=== PATIENT | male | born 1940 | race Caucasian/White ===

== ENCOUNTER → 2023-06-28 07:13 | Outpatient (REF) | payer MEDICARE, OTHER, SELFPAY | LOC: DHCBC HW 07:13 | PROVIDERS: ATTENDING PHYSICIAN Internal Medicine Cardiovascular Disease; FAMILY PHYSICIAN Family Medicine | DX: I25.10 Atherosclerotic heart disease of native coronary artery without angina pectoris (principal); I25.5 Ischemic cardiomyopathy | CPT/HCPCS: 93306 ==

== ENCOUNTER → 2023-08-03 07:53 | Outpatient (REF) | payer MEDICARE, OTHER, SELFPAY | LOC: RAD 07:53 | PROVIDERS: ATTENDING PHYSICIAN Internal Medicine; FAMILY PHYSICIAN Family Medicine | DX: N18.32 Chronic kidney disease, stage 3b (principal); I10 Essential (primary) hypertension | CPT/HCPCS: 93975 ==

== ENCOUNTER 2023-09-08 07:00 | Inpatient (IN) | payer MEDICARE, OTHER, SELFPAY ==
[2023-09-07] VITALS (8 sets, daily range): BP systolic 114–153; BP diastolic 75–98; BMI 24.9; BMI 24.6
[2023-09-07 20:09] LABS: % Basophils 0.5 % (0-2); % Immature Granulocytes 0.3 % (0-0.5); % Lymphocytes 13.8 % (20.5-51.1); % Monocytes 10.6 % (1.7-9.3); % Neutrophils 66.8 % (42.2-75.2); Absolute Eosinophils 0.6 10^3/uL (0-0.7); Absolute Lymphocytes 1.1 10^3/uL (1.2-3.4); Absolute Monocytes 0.8 10^3/uL (0.1-0.6); Absolute Neutrophils 5.1 10^3/uL (1.4-6.5); Hematocrit 39.3 % (39.0-52.0); Hemoglobin 13.6 g/dL (13.0-18.0); Mean Corp Hgb Conc. 34.6 g/dL (33.0-37.0); Mean Corpuscular Hgb 33.3 pg (27.0-31.0); Mean Corpuscular Volume 96.1 fL (80.0-94.0); Mean Platelet Volume 10.1 fL (7.4-10.4); Nucleated Red Blood Cells % 0 % (-); Platelet Count 202 10^3/uL (130-400); Red Blood Cell Count 4.09 10^6/uL (4.70-6.10); Red Cell Dist. Width 13.5 % (11.5-14.5); White Blood Cell Count 7.7 10^3/uL (4.8-10.8)
[2023-09-07 20:41] LABS: ALT (SGPT) 20 U/L (0-50); AST (SGOT) 36 U/L (17-59); Albumin 4.7 g/dl (3.5-5.0); Alkaline Phosphatase 68 U/L (38-126); Blood Urea Nitrogen 31 mg/dl (9-20); Calcium 9.4 mg/dl (8.4-10.2); Carbon Dioxide 24 mmol/L (22-30); Chloride 103 mmol/L (98-107); Glucose 231 mg/dl (70-99); Potassium 5.4 mmol/L (3.5-5.1); Sodium 137 mmol/L (135-145); Total Bilirubin 0.5 mg/dl (0.2-1.3); Total Protein 7.3 g/dl (6.3-8.2); eGFR 37.12
--- NOTE | 2023-09-07 21:11 | ED.CVA ---
History of Present Illness
General
Chief Complaint: CVA/TIA Symptoms
Source: patient
Exam Limitations: none
Time Seen by Provider: 09/07/23 20:30
Nursing documentation reviewed up to this point in time: agreed with
Onset of Stroke Symptoms
Onset of symptoms known: Yes
Date of onset of symptoms: 09/05/23
History of Present Illness
History of Present Illness:
83 yo male with difficulty word finding and confusion for the past 2 days. He was having trouble playing cards, and confused about baseball schedules.
Past History
Past History
ED Past Medical History: Arrthythmia (HB, R BBB), CAD, Cancer (renal, Colon / liver mets), CVA, GERD, NIDDM and Other (cardiomyopathy, CKD)
ED Past Surgical History: Cardiac
Patient has exhibited threatening behavior?: No
PSI?: No
Social History
Tobacco: Non-smoker
Alcohol: Occasional
Drug: None
Personal:
Living: with family
Employment: Retired
Family History
Family History: Other (Nonsignificant)
Review of Systems
Review of Systems
Allergies reviewed?: Yes
All Other Systems: Not applicable
Constitutional: Reports no symptoms
EENT: Reports no symptoms
Respiratory: Reports no symptoms
Cardiac: Reports no symptoms
ABD/GI: Reports no symptoms
: Reports no symptoms
Musculoskeletal: Reports no symptoms
Skin: Reports no symptoms
Neurological: Reports other (Confusion, word finding difficulty)
Endocrine: Reports no symptoms
Hematologic/Lymphatic: Reports no symptoms
Psychiatric: Reports no symptoms
Phy Exam
Physical Exam
Physical Exam:
Physical Exam
General: no apparent distress, not acutely ill
Neck: supple. no meningeal signs. normal posterior pharynx
Heart: s1/s2 regular rate and rhythm, no murmur. equal radial
pulses.
HEENT: Pupils equal round reactive to light, EOMI
Lungs: no acute respiratory distress. clear bilaterally
Abdomen: normal bowel sounds. not tender. no CVAT
Neuro: alert and oriented. no focal neurological deficits cranial nerves II through XII intact
Skin: no rash
Psychiatric: well kept. interactive and cooperative
Extremities: no edema. no calf tenderness. negative homans. good distal pulses
NIH Stroke Score
Level of Consciousness: 0 - Alert
LOC questions: 0-Answers both correctly
LOC Commands: 0-Performs both correctly
Best Gaze: 0-Normal
Visual Rockwell: 0=Normal, no visual loss
Facial palsy: 0=Normal, symmetrical
Motor - Right Arm: 0=No drift 10 seconds
Motor - Left Arm: 0=No drift 10 seconds
Motor - Right Le-No drift 5 seconds
Motor - Left Le-No drift 5 seconds
Limb Ataxia: 0-Absent
Sensation: 0-Normal
Best Language: 0-No aphasia
Dysarthria: 0-Normal
Extinction and Inattention: 0-No abnormality
Total Score:: 0
Alteplase Contraindication
Reasons for NON-Treatment with Thrombolytics: Time
Course
Orders/Labs/Results
Orders:
Orders
09/07/23 19:58
Electrocardiogram (*1) Urgent
Reason for Study: Other
Other Reason for Exam: Possible Stroke
EKG- Treatment ONCE
09/07/23 20:02
CT Head W/o Iv Contrast Urgent
Comment:
Reason For Exam: word finding issues
09/07/23 20:05
Complete Blood Count/With Diff Urgent
Comprehensive Metabolic Panel Urgent
Abnormal Lab Results
09/07/23
20:05
RBC 4.09 L 10^6/uL
(4.70-6.10)
MCV 96.1 H fL
(80.0-94.0)
MCH 33.3 H pg
(27.0-31.0)
Absolute Lymphs (auto) 1.1 L 10^3/uL
(1.2-3.4)
Absolute Monos (auto) 0.8 H 10^3/uL
(0.1-0.6)
Lymphocytes % 13.8 L %
(20.5-51.1)
Monocytes % 10.6 H %
(1.7-9.3)
Eosinophils % 8.0 H %
(0-6)
Potassium 5.4 H mmol/L
(3.5-5.1)
BUN 31 H mg/dl
(9-20)
Creatinine 1.8 H mg/dL
(0.7-1.3)
Glucose 231 H mg/dl
(70-99)
09/07/23 20:05
09/07/23 20:05
Vital Signs
Initial and Last Documented VS:
Initial Vital Signs
Temp Pulse Resp BP Pulse Ox
98.3 F 81 16 137/85 98
09/07/23 19:55 09/07/23 19:55 09/07/23 19:55 09/07/23 19:55 09/07/23 19:55
Last Documented Vital Signs
Temp Pulse Resp BP Pulse Ox
98.3 F 81 16 137/85 98
09/07/23 19:55 09/07/23 19:55 09/07/23 19:55 09/07/23 19:55 09/07/23 19:55
MDM/Problems Addressed
Differential Diagnosis Includes:
CVA, intracranial hemorrhage, dysrhythmia
MDM/Problems Addressed:
83-year-old male with acute CVA. IAT and TNK not indicated. Patient on Eliquis.
Chronic conditions affecting care: Cardiomyopathy, Arrhythmia and PVD
Acute Exacerbation and/or Progression of Chronic Illness: Cardiomyopathy, Arrhythmia and PVD
*Radiology
Radiology exam reviewed: radiology read reviewed (CT head shows subacute to acute right parietal infarct)
*Pulse Oximetry
Patient hypoxic: no
*EKG
Interpreted by ED Provider?: Yes
EKG Intrepretation Date: 09/07/23
EKG Intrepretation Time: 20:08
Interpretation: abnormal
Comparison EKG: changes noted
Heart Rate: 134
Rate: tachycardiac
Rhythm: ventricular paced
[facility] [place]: left axis deviation
Interval: normal interval
QRS Pattern: normal QRS
Ischemia: no ischemia
*Quality Control Representative Interpretation
Rate: tachycardiac
Interpretation: abnormal
Rhythm: ventricular paced
*Critical Care Note
Total Time (30-74mins, 75-104mins- exclusive of procedures): Not Applicable
Data Reviewed
Review of Other/Old Records Reveals: Testing (Echocardiogram on 06/28/2023 shows EF 25 to 30%)
Source: records
Further Testing Considered But Not Given:
tnk not indicated
Patient Management
Social determinants of health affecting care: Living situation and Strong social support
Discussion with other providers: Hospitalist and Attending Psychiatrist (neurology)
Escalation/DeEscalation of care consider admission/obs:
admit indicated
ED Attending Note
-
Portions of this chart may have been created with voice recognition software.� Occasional wrong word or��sound alike� substitutions may have occurred due to the inherent limitations of voice recognition software.
Discharge Plan
Departure
Patient Disposition: Admit
Date of Disposition: 09/07/23
Time of Disposition: 21:16
Admit to: Telemetry
Presentation/result/management discussed w/ accepting MD/DO: Hospitalist
Patient with high blood pressure during this ER visit?: Yes
Condition: Good
Discharge Problem:
Acute cerebrovascular accident (CVA)
Prescriptions:
No Action
Tradjenta 5 MG tablet
5 mg PO DAILY
multivitamin with folic acid [Tab-A-Micheel] 1 TABLET tablet
1 tab PO DAILY
pantoprazole 40 MG tablet,delayed release (DR/EC)
40 mg PO DAILY
aspirin 81 MG tablet,delayed release (DR/EC)
81 mg PO QPM
ferrous sulfate [FeroSul] 325 MG tablet
325 mg PO [id number]
cholecalciferol (vitamin D3) 1,000 UNITS tablet
1,000 units PO DAILY
metoprolol succinate [Toprol XL] 25 mg Tablet Extended Release 24 Hr
25 mg PO BID
acetaminophen 325 mg Tablet
650 mg PO Q6HPRN PRN (Reason: mild pain/ fever>100.5F) Qty: 0 0RF
clopidogrel 75 mg Tablet
75 mg PO DAILY Qty: 30 0RF
repaglinide 0.5 mg Tablet
0.5 mg PO TID@0800,1200,1700 Qty: 90 0RF
rosuvastatin 20 mg Tablet
20 mg PO QPM Qty: 30 0RF
lisinopril 5 mg Tablet
5 mg PO DAILY Qty: 30 0RF
Referrals:
Jono Green DO [Family Provider] -
Interventions
Interventions:
*General Assessment Last Done: 09/07/23 19:55
ED- Neurological Assessment Last Done: 09/07/23 19:55
Discharge Date and Time
Print Language: BELARUSIAN
--- NOTE | 2023-09-07 21:48 | HPS.HSE ---
Family Physician
-
Family Physician: Jono Green
Chief Complaint
-
word finding difficulty
History of Present Illness
83-year-old male past medical history of prior CVA 2001, multivessel coronary artery disease, severe ischemic cardiomyopathy with EF of 30 to 35% status post ICD, ventricular fibrillation, paroxysmal atrial fibrillation, mild pulmonary hypertension,
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
confusion, word finding difficulty for the past 2 days. Today he had trouble remembering a phone number. Currently he denies any symptoms. He did have blurry vision yesterday which has resolved.
He denies smoking alcohol use.
Medical History
Past Medical History
Past Medical History: Reports Other (prior CVA 2001, multivessel coronary artery disease, severe ischemic cardiomyopathy with EF of 30 to 35% status post ICD, ventricular fibrillation, paroxysmal atrial fibrillation, mild pulmonary hypertension,
pulmonary embolism on Eliquis, CKD stage II, hypertension, diabetes, colon cancer, left eren)
Past Surgical History: Reports None
Social History
Tobacco: Non-smoker
Alcohol: None
Drug: None
Family History
Family History: Not pertinent
Allergies / Home Medications
Allergies reflects when Allergies were last updated in [facility].
Home Medications with original date entered in [facility]
Allergy/Medication List:
Allergies
Allergy/AdvReac Type Severity Reaction Status Date / Time
metformin Allergy Hives-xr Verified 10/18/21 16:35
only
red dye Allergy throat Verified 10/17/21 09:47
closed up
Sulfa (Sulfonamide Allergy throat Verified 10/17/21 09:47
Antibiotics) tightens up
Allergies
Allergy/AdvReac Type Severity Reaction Status Date / Time
metformin Allergy Hives-xr Verified 10/18/21 16:35
only
red dye Allergy throat Verified 10/17/21 09:47
closed up
Sulfa (Sulfonamide Allergy throat Verified 10/17/21 09:47
Antibiotics) tightens up
Home Medications
linagliptin 5 mg tablet (Tradjenta) 5 mg PO DAILY Diabetes 01/22/19
multivitamin with folic acid 400 mcg tablet (Tab-A-Michele) 1 tab PO DAILY Supplement 01/22/19
aspirin 81 mg tablet,delayed release 81 mg PO QPM Blood clot prevention/tx 11/05/19
ferrous sulfate 325 mg (65 mg iron) tablet (FeroSul) 325 mg PO Q48H Supplement 11/05/19
apixaban 2.5 mg tablet (Eliquis) 2.5 mg PO BID 09/07/23
ergocalciferol (vitamin D2) 1,250 mcg (50,000 unit) capsule (Vitamin D2) 1,250 mcg PO Q15D 09/07/23
insulin glargine 100 unit/mL (3 mL) subcutaneous pen (Lantus Solostar U-100 Insulin) 12 unit SC HS 09/07/23
metoprolol succinate 50 mg tablet,extended release 24 hr 50 mg PO BID 09/07/23
repaglinide 1 mg tablet 1 mg PO DAILY 09/07/23
repaglinide 1 mg tablet 2 mg PO NOON 09/07/23
repaglinide 2 mg tablet 8 mg PO QPM 09/07/23
rosuvastatin 20 mg tablet 10 mg PO QPM 09/07/23
Review of Systems
-
History Source: Patient
A 12 point ROS was completed and negative except as noted: Yes
Constitutional: Reports No Symptoms
EENT: Reports No Symptoms
Respiratory: Reports No Symptoms
Cardiac: Reports No Symptoms
Abdomen/GI: Reports No Symptoms
: Reports No Symptoms
Musculoskeletal: Reports No Symptoms
Skin: Reports No Symptoms
Neurological: Reports See HPI
Endocrine: Reports No Symptoms
Hematologic/Lymphatic: Reports No Symptoms
Psych: Reports No Symptoms
Physical Exam
Vital Signs
Vital Signs
Temp Pulse Resp BP Pulse Ox
98.3 F 81 16 137/85 98
09/07/23 19:55 09/07/23 19:55 09/07/23 19:55 09/07/23 19:55 09/07/23 19:55
Physical Exam
General: Well Developed, Well Nourished and No Apparent Distress
HEENT: NormoCephalic, Moist mucous membranes and Atraumatic
Respiratory: Clear
Cardiac: S1/S2 and Regular Rhythm; No Murmur or Rub
GI: Soft, Non Tender, Non Distended and Normal Bowel Sounds; No Organomegaly
Rectal: Deferred by Provider
Musculoskeletal: No Clubbing, No Cyanosis and No Edema
Skin: No Rash
Neuro: Nonfocal/grossly intact
Laboratory Results
-
09/07/23 20:05
09/07/23 20:05
Laboratory Results
Total Bilirubin 0.5 mg/dl (0.2-1.3) 09/07/23 20:05
AST 36 U/L (17-59) 09/07/23 20:05
ALT 20 U/L (0-50) 09/07/23 20:05
Alkaline Phosphatase 68 U/L (38-126) 09/07/23 20:05
Data Reviewed
-
Lab Data: Labs Reviewed by me
Old Records: Reviewed
Impression/Plan
-
IMPRESSION:
PLAN:
# Acute/subacute right parietal CVA
-Asymptomatic currently
-Hold Eliquis which was last taken at 7 PM today
-Continue aspirin
-Check MRI/MRA head and neck
-Check A1c and lipid panel
-Neurology consult
Multivessel coronary artery disease
-Continue statin
Severe ischemic cardiomyopathy with EF 30 to 35% status post ICD
-Continue metoprolol
History of ventricular fibrillation
Paroxysmal atrial fibrillation
Mild pulmonary hypertension
Hx of Pulmonary embolism (Unable to verify)
-Patient does not know any further details about this but states he had a clot
-Hold Eliquis
#CKD stage II
#Hyperkalemia
-Renal function at baseline
-Hold lisinopril
Essential hypertension
-Hold lisinopril due to hyperkalemia
Type 2 diabetes
-Continue Lantus 12 units
-Hold repaglinide
-Continue Tradjenta
-Insulin sliding scale
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
-Currently in remission, completed immunotherapy 3 weeks ago
Left renal cell carcinoma status post left nephrectomy
GERD
-Continue Protonix
Full code
DVT prophylaxis�SCDs
Cardiac diet
[2023-09-07 23:39] LABS: Glucose - Point of Care 170 mg/dl (70-99)
[2023-09-08] VITALS (8 sets, daily range): BP systolic 111–145; BP diastolic 69–99; PULSE 78–118; O2SAT 96–97; BMI 24.6
[2023-09-08] MEDS: LANTUS 0.119999999999999996 UNITS SC ×2 (00:09→22:17)
[2023-09-08 00:11] LABS: ALT (SGPT) 19 U/L (0-50); AST (SGOT) 37 U/L (17-59); Albumin 4.3 g/dl (3.5-5.0); Alkaline Phosphatase 60 U/L (38-126); Blood Urea Nitrogen 31 mg/dl (9-20); Calcium 8.9 mg/dl (8.4-10.2); Carbon Dioxide 23 mmol/L (22-30); Chloride 106 mmol/L (98-107); Estimated Creatinine Clearance 38 ml/min; Glucose 155 mg/dl (70-99); Potassium 4.5 mmol/L (3.5-5.1); Sodium 136 mmol/L (135-145); Total Bilirubin 0.6 mg/dl (0.2-1.3); Total Protein 6.7 g/dl (6.3-8.2); eGFR 42.75
--- NOTE | 2023-09-08 01:49 | PTCARENOTE ---
Received pt from ED @ 7280. Pt ambulatory in room, AAOx3, VSS. Pt oriented to room, call olson and plan of care.
[2023-09-08 05:22] LABS: Hematocrit 36.3 % (39.0-52.0); Hemoglobin 12.4 g/dL (13.0-18.0); Mean Corp Hgb Conc. 34.2 g/dL (33.0-37.0); Mean Corpuscular Hgb 32.5 pg (27.0-31.0); Mean Corpuscular Volume 95.3 fL (80.0-94.0); Mean Platelet Volume 10.2 fL (7.4-10.4); Platelet Count 184 10^3/uL (130-400); Red Blood Cell Count 3.81 10^6/uL (4.70-6.10); Red Cell Dist. Width 13.4 % (11.5-14.5); White Blood Cell Count 6.2 10^3/uL (4.8-10.8)
[2023-09-08 05:52] LABS: HDL Cholesterol 38 mg/dl; LDL Cholesterol, Calculated 44 mg/dl; Total Cholesterol 98 mg/dl (50-199); Triglyceride 83 mg/dl (10-149); Very Low Density Lipoprotein 16 mg/dl (0-30)
[2023-09-08 07:55] LABS: Glucose - Point of Care 134 mg/dl (70-99)
[2023-09-08] MEDS: NOVOLOG FLEXPEN-LOW RESISTANCE SC (08:38)
[2023-09-08] MEDS: TOPROL XL 50 MG PO ×2 (08:39→20:24)
[2023-09-08] MEDS: FEOSOL 325 MG PO (08:39)
[2023-09-08] MEDS: THERAGRAN 1 TABLET PO (08:39)
--- NOTE | 2023-09-08 08:55 | PTOTSP ---
Speech Language Pathology
Pt seen for speech/language evaluations. Pt with mild dysarthria with slow and incoordinated diadochokinetic (DDK) rates. Language evaluated via the Quick Aphasia Battery (QAB), form 1. Pt with an overall score of 7.18, indicating overall
moderate deficits.
Pt also seen for clinical bedside swallow evaluation. P.O. trials of regular solids and thin liquids provided. Adequate mastication, bolus formation, and A-P transit noted with no oral residue. No overt signs of aspiration.
Recommend:
(1) Continue regular solids/thin liquids
(2) General aspiration precautions
(3) Meds as tolerated
(4) VOLUNTEER SERVICES MANAGER to continue to follow for speech/language therapy. Further dysphagia services not indicated. Would benefit from speech follow up at discharge as well
--- NOTE | 2023-09-08 09:10 | W.PN.HOSP.TC ---
Addendum entered and electronically signed by Susan Burris MD 09/08/23 10:59:
Addendum
d/w Dr Hidalgo, neurologist. No need for MRI studies. Ok to go back on Eliquis. Can go home.
Addendum
Will do carotid US
End
Original Note:
Today's Communication/Plan
-
Holding Eliquis pending neurology evaluation
Echo
MRI studies
f/w neurology recommendations
Assessment / Plan
Assessment / Plan
Physical Exam
General: Well Developed, Well Nourished and No Apparent Distress
HEENT: Normocephalic, Moist mucous membranes and Atraumatic
Respiratory: Clear. Right upper chest port
Cardiac: S1/S2 and Regular Rhythm; No Murmur or Rub
GI: Soft, Non Tender, Non Distended and Normal Bowel Sounds; No Organomegaly
Musculoskeletal: No Clubbing, No Cyanosis and No Edema
Skin: No Rash
Neuro: AAOX3. No slurred speech. No tremor.
Psych: No agitation
# Acute/subacute right parietal CVA
Patient takes aspirin and Eliquis regularly.
-Asymptomatic currently
-Holding Eliquis pending neurology evaluation
-Continue aspirin
-Check MRI/MRA head and neck
- Order Echo
-LDL 44
- Order PT/OT/Speech
- NIH score
-Neurology consult
# Stage 3b chronic kidney disease
Solitary kidney
Monitor renal function
# Hyperkalemia, resolved
Multivessel coronary artery disease
No chest pain
-Continue statin
# Chronic HFrEF
Severe ischemic cardiomyopathy with EF 30 to 35% status post ICD
-Continue metoprolol
Not in acute failure
History of ventricular fibrillation
Paroxysmal atrial fibrillation
Holding Eliquis pending neurology evaluation
Mild pulmonary hypertension
Hx of Pulmonary embolism (Unable to verify)
-Patient does not know any further details about this but states he had a clot
-Hold Eliquis
#CKD stage II
#Hyperkalemia
-Renal function at baseline
-Hold lisinopril
Essential hypertension
c/w BB
-Held lisinopril due to hyperkalemia
Type 2 diabetes
-Continue Lantus 12 units
-Hold repaglinide
-Continue Tradjenta
-Insulin sliding scale
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
Port right upper chest
-Currently in remission, completed immunotherapy 3 weeks ago
Left renal cell carcinoma status post left nephrectomy
GERD
-Continue Protonix
Full code
DVT prophylaxis�SCDs
Cardiac diet
Total time spent to see the patient on the floor, examine the patient, review data and lab results, discuss treatment plan with patient, nursing staff around 55 minutes
Anticipated Discharge: 24 - 48 hours
Subjective/Interval History
-
Date of Service: September 08, 2023
He feels back to chloe, able to talk and think
no localized weakness
No chest pain
Objective Data
-
Labs:
Laboratory Results
09/07/23 09/08/23
23:46 05:05
WBC 6.2
Hgb 12.4 L
Hct 36.3 L
Plt Count 184
Sodium 136
Potassium 4.5
Chloride 106
Carbon Dioxide 23
BUN 31 H
Creatinine 1.6 H
Glucose 155 H
Calcium 8.9
Total Bilirubin 0.6
AST 37
ALT 19
Alkaline Phosphatase 60
Vital Signs:
Vital Signs
Temp Pulse Resp BP Pulse Ox
97.8 F 80 18 129/74 98
09/08/23 07:40 09/08/23 08:39 09/08/23 07:40 09/08/23 08:39 09/08/23 07:40
[2023-09-08 10:18] LABS: Glycohemoglobin (HgbA1c) 7.5 % (4.0-5.6)
[2023-09-08 11:53] LABS: Glucose - Point of Care 272 mg/dl (70-99)
[2023-09-08] MEDS: NOVOLOG FLEXPEN-LOW RESISTANCE 3 UNITS SC (12:48)
--- NOTE | 2023-09-08 14:21 | CM ---
catering convention services manager reviewed patient's chart and met with patient and patient lives with spouse in a 2 story home, 2 steps to enter, patient was independent with adl's and ambulation, very active, spouse uses stair glide, walker, cane.
Pharmacy; [facility]
PCP: Dr. Green
Plan; Home when stable.
--- NOTE | 2023-09-08 14:50 | CON.NEURO4 ---
Consultation - Neurology 4
-
CONSULTING PHYSICIAN: Pb Hidalgo MD
REFERRING PHYSICIAN: Hospitalist
DICTATED BY: Pb Hidalgo MD
DATE/TIME OF REQUEST: September 07, 1823
DATE/TIME OF CONSULTATION: September 08, 2023 1030
Reason for Consultation: Speech impediment for 48 hours
History of Present Illness:
This is a 83year old right handed male who has presented to the hospital with chief complaint of speech impediment. He has a history of prior CVA 2001, multivessel coronary artery disease, severe ischemic cardiomyopathy with EF of 30 to 35% status
post ICD, ventricular fibrillation, paroxysmal atrial fibrillation, mild pulmonary hypertension, pulmonary embolism on Eliquis, CKD stage II, hypertension, diabetes, colon cancer, left renal cell carcinoma status post left nephrectomy, colon cancer
with metastases to liver recently completed immunotherapy 3 weeks ago, GERD.
He had been in his usual state of health presenting with confusion, word finding difficulty for the past 2 days. On the day of admission he had trouble remembering a phone number. Currently he denies any symptoms. He did have blurry vision
yesterday which has resolved
He denies headaches dizziness no focal weakness or numbness no loss conscious no seizures no difficulty with balance incoordination or gait impairment
Past Medical History: As above
Surgical History: Defibrillator placement nephrectomy
Family History: Noncontributory
Social History: Lives at home
Allergies: Metformin and sulfa
Home Medications: Eliquis 2.5 BID aspirin vitamin D insulin Crestor Tradjenta Prandin
Review of Symptoms:
Patient denies any fever, headache, chest pain, shortness of breath, GI or symptoms.
�Per the HPI.�All systems are reviewed negative except above.
�- Remove any of these problems that patient may have complained about in the HPI.
�- If patient is unresponsive, intubated or demented, say 'Per the HPI. I am unable to obtain a complete review of systems�because of patient's inability to provide history.'
Vital Signs: Temp Pulse Resp BP Pulse Ox
36.6 C 82 18 119/77 95
Physical Exam:
The patient is afebrile, heart sounds S1 and S2 are irregular, and chest is clear to auscultation bilaterally.
- If not clear, describe.
NIH Stroke Scale (if applicable): 0
Neurologic Examination:
The patient is awake, alert and oriented x person place and year. He is able to follow commands and answer questions appropriately. There is no aphasia or dysarthria. On cranial nerve assessment, pupils are 3 mm bilateral, round and reactive to
light and accommodation. Visual soriano are full. Extraocular movements are intact. Facial sensations are intact and bilaterally symmetrical, there is no facial asymmetry. Hearing is intact bilaterally to normal conversation volume. Tongue palate
and uvula are midline. Sternocleidomastoid strengths are full bilaterally.
Motor strengths are 5/5 bilateral upper and lower extremities on medical research [place] scale. There is no drift or involuntary movement noted.
Deep tendon reflexes are + bilateral upper and lower extremities and Babinski is absent bilaterally. Sensations of pain, touch, temperature and vibration are decreased bilaterally. Coordination is intact by finger to nose bilaterally.
Romberg's was unsteady and gait was assisted
Lab Results: 09/08/23 05:05
09/07/23 23:46
Sodium 136 mmol/L (135-145) 09/07/23 23:46
Potassium 4.5 mmol/L (3.5-5.1) 09/07/23 23:46
BUN 31 mg/dl (9-20) H 09/07/23 23:46
Glucose 155 mg/dl (70-99) H 09/07/23 23:46
Calcium 8.9 mg/dl (8.4-10.2) 09/07/23 23:46
LDL Cholesterol, Calc 44 mg/dl 09/08/23 05:05
Neuro Imaging: CT head FINDINGS:
The ventricles are normal in size, configuration, and position for age. There is no intra- or extra-axial mass, hemorrhage, or fluid collection.
3.0 cm focus of confluent hypoattenuation in the posterior right parietal lobe most in keeping with infarct, new from 01/22/2019. No areas of abnormal mass effect are noted. There is mild subcortical, deep, and periventricular white matter
low-attenuation, compatible with changes of chronic small vessel ischemic disease. Old right cerebellar infarct re demonstrated. Stable small focus of encephalomalacia in the right frontal lobe. Mild mucosal thickening of the right maxillary sinus.
No depressed calvarial fracture.
Impression:
Mr. KOKI CUNNINGHAM is a 83 year old M who has presented to the hospital with intermittent speech impediment most likely just presenting transient ischemic event of the Broca's area.
Recommendations:
1. Eliquis 2.5 twice daily
2. Aspirin 81 daily
3. Speech therapy
Patient may be discharged home once medically stable
Discussed patient care with: Hospitalist
Total Time Spent with Patient (in minutes): 30
Vital Signs and Labs
-
Vital Signs and Labs:
Vital Signs
Temp Pulse Resp BP Pulse Ox
36.6 C 82 18 119/77 95
09/08/23 11:00 09/08/23 11:00 09/08/23 11:00 09/08/23 11:00 09/08/23 11:00
Lab Results
09/08/23 05:05
09/07/23 23:46
Sodium 136 mmol/L (135-145) 09/07/23 23:46
Potassium 4.5 mmol/L (3.5-5.1) 09/07/23 23:46
BUN 31 mg/dl (9-20) H 09/07/23 23:46
Glucose 155 mg/dl (70-99) H 09/07/23 23:46
Calcium 8.9 mg/dl (8.4-10.2) 09/07/23 23:46
LDL Cholesterol, Calc 44 mg/dl 09/08/23 05:05
[2023-09-08 16:59] LABS: Glucose - Point of Care 172 mg/dl (70-99)
[2023-09-08] MEDS: CRESTOR 10 MG PO (17:24)
[2023-09-08] MEDS: ASPIR LOW (ENTERIC COATED) 81 MG PO (17:24)
[2023-09-08] MEDS: NOVOLOG FLEXPEN-LOW RESISTANCE 1 UNITS SC (17:25)
[2023-09-08] MEDS: ELIQUIS 2.5 MG PO (20:24)
[2023-09-08] MEDS: FLUSH (NSS) 1 FLUSH IV (20:38)
[2023-09-08 21:22] LABS: Glucose - Point of Care 255 mg/dl (70-99)
[2023-09-09 02:59] VITALS: BP 138/90
[2023-09-09 06:00] VITALS: BMI 24.0
[2023-09-09 07:03] VITALS: BP 122/76
[2023-09-09 07:15] LABS: Glucose - Point of Care 178 mg/dl (70-99)
[2023-09-09] MEDS: NOVOLOG FLEXPEN-LOW RESISTANCE 1 UNITS SC (07:21)
[2023-09-09] MEDS: THERAGRAN 1 TABLET PO (07:21)
[2023-09-09] MEDS: ELIQUIS 2.5 MG PO (07:21)
[2023-09-09] MEDS: TOPROL XL 50 MG PO (07:21)
--- NOTE | 2023-09-09 09:09 | W.DCSUMMARY ---
Discharge Summary
Discharge Data
Date of Admission: 09/08/23
Date of Discharge: 09/09/23
-
Pending Results: No
Hospital Course
83 years old male presented with word finding difficulty. 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 Patient had history of atrial fibrillation and was compliant with Eliquis and aspirin. Patient was
evaluated by neurologist. Neurologist recommended to continue Eliquis and aspirin without interruption. No need for by the resident imaging studies. Patient recovered well. He continued to have in the frequent word finding problem but overall
improved. Gait was normal and at baseline. No focal weakness. Mentation was at baseline and he remained lucid. Carotid ultrasound showed no significant stenosis in either side. Echocardiogram showed left ventricular ejection fraction 25 to 30%
and progression of tricuspid regurgitation from mild to moderate to moderate to severe. Patient wanted to follow-up with music therapy specialist in the office. Patient remained hemodynamic stable and was discharged home in a stable condition.
Physical Exam
General: Well Developed, Well Nourished and No Apparent Distress
HEENT: Normocephalic, Moist mucous membranes and Atraumatic
Respiratory: Clear. Right upper chest port
Cardiac: S1/S2, positive murmur.
GI: Soft, Non Tender, Non Distended and Normal Bowel Sounds; No Organomegaly
Musculoskeletal: No Clubbing, No Cyanosis and No Edema
Skin: No Rash
Neuro: AAOX3. No slurred speech. No tremor. Gait is normal. Patient followed commands appropriately.
Psych: No agitation.
Total discharge time spent to see the patient on the floor, examine the patient, review data and lab results, discuss discharge plan with patient, nursing staff around 65 minutes
Discharge Plan
-
Patient Disposition: Home (Routine Discharge)
Discharge Diagnosis/Procedures: intermittent speech impediment most likely just presenting transient ischemic event of the Broca's area.
You were seen by neurologist. Recommended follow-up in office in 1 month. Continue aspirin and Plavix.
Recommend outpatient follow-up with music therapy specialist.
Diet: As tolerated and Low Fat
Driving Restrictions: Not until seen by your Dr
Referrals:
Ward Anne MD [Active] - in one month
Jono Green DO [Family Provider] - in one to two weeks
Prescriptions:
Continued
Tradjenta 5 MG tablet
5 mg PO DAILY
multivitamin with folic acid [Tab-A-Michele] 1 TABLET tablet
1 tab PO DAILY
aspirin 81 MG tablet,delayed release (DR/EC)
81 mg PO QPM
ferrous sulfate [FeroSul] 325 MG tablet
325 mg PO Q48H
repaglinide 2 mg tablet
8 mg PO QPM
metoprolol succinate 50 mg tablet extended release 24 hr
50 mg PO BID
ergocalciferol (vitamin D2) [Vitamin D2] 1,250 mcg (50,000 unit) capsule
1,250 mcg PO Q15D
repaglinide 1 mg tablet
1 mg PO DAILY
repaglinide 1 mg tablet
2 mg PO NOON
insulin glargine [Lantus Solostar U-100 Insulin] 100 unit/mL (3 mL) insulin pen
12 unit SC HS
Eliquis 2.5 mg tablet
2.5 mg PO BID
rosuvastatin 20 mg tablet
10 mg PO QPM
Discharge Orders:
Discharge Patient (As Directed); Ordered 09/09/23
Ordered By: Susan Burris
Discharge Date and Time
Print Language: [place]
--- NOTE | 2023-09-09 10:10 | CM ---
Home today no needs.
Plan; Home today no needs.
== END 2023-09-09 10:55 | disposition home or self-care (01) | DRG 69 ==
LOC: 4 WEST ACU 07:00
PROVIDERS: ADMITTING PHYSICIAN Hospitalist; ATTENDING PHYSICIAN Internal Medicine; EMERGENCY PHYSICIAN Emergency Medicine; FAMILY PHYSICIAN Family Medicine; OTHER PHYSICIAN Psychiatry & Neurology Neurology
DX: G45.9 Transient cerebral ischemic attack, unspecified (principal); I50.22 Chronic systolic (congestive) heart failure; I13.0 Hypertensive heart and chronic kidney disease with heart failure and stage 1 through stage 4 chronic kidney disease, or unspecified chronic kidney disease; I25.10 Atherosclerotic heart disease of native coronary artery without angina pectoris; I25.5 Ischemic cardiomyopathy; I48.0 Paroxysmal atrial fibrillation; I27.20 Pulmonary hypertension, unspecified; E11.22 Type 2 diabetes mellitus with diabetic chronic kidney disease; K21.9 Gastro-esophageal reflux disease without esophagitis; E87.5 Hyperkalemia; I07.1 Rheumatic tricuspid insufficiency; N18.32 Chronic kidney disease, stage 3b; Z79.01 Long term (current) use of anticoagulants; Z79.4 Long term (current) use of insulin; Z79.82 Long term (current) use of aspirin; Z85.038 Personal history of other malignant neoplasm of large intestine; Z85.528 Personal history of other malignant neoplasm of kidney; Z86.711 Personal history of pulmonary embolism; Z86.73 Personal history of transient ischemic attack (TIA), and cerebral infarction without residual deficits; Z90.5 Acquired absence of kidney; Z95.810 Presence of automatic (implantable) cardiac defibrillator
CPT/HCPCS: 70450; 80053; 80061; 82962; 83036; 85025; 85027; 92523; 92610; 93005; 93306; 93880; 97163; 97167; 99285

== ENCOUNTER 2023-09-16 19:21 | Emergency (ER) | payer MEDICARE, OTHER, SELFPAY ==
[2023-09-16 19:27] VITALS: BP 136/83; BMI 25.5
--- NOTE | 2023-09-16 19:56 | ED.GENMED ---
History of Present Illness
General
Chief Complaint: Skin Surface Trauma
Source: patient, family and ambulance crew
Exam Limitations: none
Time Seen by Provider: 09/16/23 19:33
Nursing documentation reviewed up to this point in time: agreed with
History of Present Illness
History of Present Illness:
83-year-old male past medical history of previous PE currently on Eliquis, previous stroke heart disease and vascular disease, kidney issues presenting to the emergency department with concerns of bleeding from a varicosity to his right foot after
he was rubbing his foot with his other foot prior to arrival. Bleeding seem to be controlled with pressure there was concerns that there was some ongoing bleeding EMS was called he was brought to the ER denies any large-volume bleeding no
lightheadedness or additional concerns.
Past History
Past History
ED Past Medical History: Arrthythmia (HB, R BBB), CAD, Cancer (renal, Colon / liver mets), CVA, GERD, NIDDM and Other (cardiomyopathy, CKD)
ED Past Surgical History: Cardiac
Patient has exhibited threatening behavior?: No
PSI?: No
Social History
Tobacco: Non-smoker
Alcohol: Occasional
Drug: None
Personal:
Living: with family
Employment: Retired
Family History
Family History: Other (Nonsignificant)
Review of Systems
Review of Systems
Allergies reviewed?: Yes
All Other Systems: ROS reviewed and negative except as documented in HPI and ROS
Phy Exam
Physical Exam
Physical Exam:
GENERAL: Alert , in no apparent distress
EYE: pupils equal and reactive
NECK: Supple, no significant adenopathy.
ENT: o/p clr, mmm.
CARDIAC: Regular rate and rhythm .
LUNGS: Clear breath sounds bilaterally, no acute respiratory distress, no wheezes/rales/rhonchi
ABDOMEN: Soft, without focal tenderness, no r/g, no cvat
NEUROLOGICAL: Alert and oriented, no focal neuro deficits
SKIN: Multiple varicosities to the top of the right foot there was a small area that has a small scab that did not have any active bleeding. Warm and dry, skin intact.
MUSCULOSKELETAL: No edema, well perfused.
PSYCH: Normal and appropriate interaction.
Course
Vital Signs
Initial and Last Documented VS:
Initial Vital Signs
Temp Pulse Resp BP Pulse Ox
98.2 F 78 14 136/83 95
09/16/23 19:27 09/16/23 19:27 09/16/23 19:27 09/16/23 19:27 09/16/23 19:27
Last Documented Vital Signs
Temp Pulse Resp BP Pulse Ox
98.2 F 78 14 136/83 95
09/16/23 19:27 09/16/23 19:27 09/16/23 19:27 09/16/23 19:27 09/16/23 19:27
Procedures
Laceration Closure
Right Foot:
Status of Wound: clean
Size of Wound in cm: 0.1
Description of Wound Edges: other
Preparation: cleaned with saline
Revision/Debridement: routine- no revision and irrigate-direct pressure
Wound exploration: no tendon involvement
Type of Closure: Dermabond-skin glue
MDM/Problems Addressed
MDM/Problems Addressed:
83-year-old male presenting to the emergency department today with concerns of bleeding from a varicosity to the top of the right foot that occurred just prior to arrival. Patient is on Eliquis denies any large-volume bleeding. No active bleeding
upon arrival here area was cleaned and [place] of Dermabond was placed to reduce risk of recurrence. Otherwise patient with no ongoing bleeding here after observation for half an hour. Stable for discharge return precautions given.
*Critical Care Note
Total Time (30-74mins, 75-104mins- exclusive of procedures): Not Applicable
ED Attending Note
-
Portions of this chart may have been created with voice recognition software.� Occasional wrong word or��sound alike� substitutions may have occurred due to the inherent limitations of voice recognition software.
Discharge Plan
Departure
Patient Disposition: Home (Routine Discharge)
Date of Disposition: 09/16/23
Time of Disposition: 20:04
Patient with high blood pressure during this ER visit?: No
Condition: Good
Covid-19: Not Applicable
Discharge Problem:
Bleeding from varicose vein
Instructions: Laceration Repair With Glue (DC)
Prescriptions:
No Action
Tradjenta 5 MG tablet
5 mg PO DAILY
multivitamin with folic acid [Tab-A-Michele] 1 TABLET tablet
1 tab PO DAILY
aspirin 81 MG tablet,delayed release (DR/EC)
81 mg PO QPM
ferrous sulfate [FeroSul] 325 MG tablet
325 mg PO Q48H
repaglinide 2 mg tablet
8 mg PO QPM
metoprolol succinate 50 mg tablet extended release 24 hr
50 mg PO BID
ergocalciferol (vitamin D2) [Vitamin D2] 1,250 mcg (50,000 unit) capsule
1,250 mcg PO Q15D
repaglinide 1 mg tablet
1 mg PO DAILY
repaglinide 1 mg tablet
2 mg PO NOON
insulin glargine [Lantus Solostar U-100 Insulin] 100 unit/mL (3 mL) insulin pen
12 unit SC HS
Eliquis 2.5 mg tablet
2.5 mg PO BID
rosuvastatin 20 mg tablet
10 mg PO QPM
Referrals:
UNKNOWN - PT DOES,NOT KNOW [Family Provider] -
Activity Restrictions/Additional Instructions:
You came to the emergency department today with concerns of bleeding from a varicose vein of your right foot. Dermabond was placed and a pressure dressing was placed as well. Please monitor this over the next day or 2. If there is any rebleeding
please come back in for reassessment.
Interventions
Interventions:
*Risk Screen - Suicide Last Done: 09/16/23 19:27
*General Assessment Last Done: 09/16/23 19:27
*Neglect/Abuse Screening Last Done: 09/16/23 19:27
*ED COVID-19 Vaccine History Last Done: 09/16/23 19:27
ED-Skin Assessment Last Done: 09/16/23 19:27
Discharge Date and Time
Print Language: ROMANSH
== END 2023-09-16 20:24 | disposition home or self-care (01) ==
LOC: EMR 19:21
PROVIDERS: EMERGENCY PHYSICIAN Emergency Medicine
DX: I83.891 Varicose veins of right lower extremity with other complications (principal); Z79.01 Long term (current) use of anticoagulants
CPT/HCPCS: 99282; 12001

== ENCOUNTER → 2023-09-29 07:00 | Outpatient (REF) | payer MEDICARE, OTHER, SELFPAY | LOC: DHCBC/DCA 07:00 | PROVIDERS: ATTENDING PHYSICIAN Nurse Practitioner; FAMILY PHYSICIAN Family Medicine | DX: I25.10 Atherosclerotic heart disease of native coronary artery without angina pectoris (principal); I50.20 Unspecified systolic (congestive) heart failure; R53.83 Other fatigue; R06.09 Other forms of dyspnea | CPT/HCPCS: 78452; 93017; A9500; J2785 ==

== ENCOUNTER → 2024-07-30 12:45 | Outpatient (REF) | payer MEDICARE, OTHER, SELFPAY | LOC: HWRCS 12:45 | PROVIDERS: ATTENDING PHYSICIAN Internal Medicine Cardiovascular Disease; FAMILY PHYSICIAN Family Medicine | DX: I51.7 Cardiomegaly (principal) | CPT/HCPCS: 93306 ==

== ENCOUNTER 2024-08-24 10:56 | Inpatient (IN) | payer MEDICARE, OTHER, SELFPAY ==
[2024-08-24] VITALS (9 sets, daily range): BP systolic 102–141; BP diastolic 58–99; BMI 24.1; BMI 23.5
--- NOTE | 2024-08-24 07:59 | ED.GENMED ---
History of Present Illness
General
Chief Complaint: Dizziness
Source: patient and records
Time Seen by Provider: 08/24/24 07:19
History of Present Illness
History of Present Illness:
Note:
CHIEF COMPLAINT(S)
- Dizziness and fatigue
HISTORY OF PRESENT ILLNESS
The patient is an 84-year-old male with a history of atrial fibrillation and a pacemaker, presenting with dizziness and fatigue. The dizziness began today, with the patient describing the dizziness to be more of a lightheaded sensation, denies
vertigo. He describes persistent fatigue over the past week, particularly when performing routine activities such as cutting the grass or walking around the block. He noted that activities that were previously manageable now leave him exhausted, and
he experiences shortness of breath after walking only a few steps. He denies chest pain, sweating, nausea, or pain in the jaw, shoulder, or other areas typically associated with cardiac issues. Over the past three to four days, the patient reported
experiencing watery diarrhea and abdominal pain (denies pain currently). No fevers, recent illnesses, or recent travel were reported. The patient denies smoking, alcohol, or substance use, mentioning only incidental beer consumption which he stopped
2 years ago after his afib diagnosis.
CHRONIC MEDICAL CONDITIONS SIGNIFICANTLY AFFECTING CARE
- History of atrial fibrillation
- Pacemaker placement
- Prior left kidney removal for kidney cancer
- History of colon cancer, declared clean as of February last year
REVIEW OF SYSTEMS
- General: Significant fatigue and reduced exercise tolerance
- Cardiovascular: Shortness of breath without chest pain
- Gastrointestinal: Watery diarrhea and abdominal pain
Past History
Past History
ED Past Medical History: Arrthythmia (HB, R BBB), CAD, Cancer (renal, Colon / liver mets), CVA, GERD, NIDDM and Other (cardiomyopathy, CKD)
ED Past Surgical History: Cardiac
Patient has exhibited threatening behavior?: No
PSI?: No
Social History
Tobacco: Non-smoker
Alcohol: Occasional
Drug: None
Personal:
Living: with family
Employment: Retired
Family History
Family History: Other (Nonsignificant)
Review of Systems
Review of Systems
All Other Systems: ROS reviewed and negative except as documented in HPI and ROS
Phy Exam
Physical Exam
Physical Exam:
GENERAL: Alert , in no apparent distress
HEAD: NCAT
EYE: clear conjunctiva
NECK: Supple
ENT: o/p clr, mmm.
CARDIAC: Regular rate and rhythm, systolic murmur LSB .
LUNGS: Clear breath sounds bilaterally, no acute respiratory distress, no wheezes/rales/rhonchi
ABDOMEN: Soft, without focal tenderness, no r/g, no cvat
NEUROLOGICAL: Alert and oriented, SHAY x 4, no focal weakness/numbness, no ataxia
SKIN: Warm and dry, skin intact.
MUSCULOSKELETAL: No edema, well perfused.
PSYCH: Normal and appropriate interaction.
Scores
Heart Failure Risk
Heart Failure Risk Score: Not Applicable
Heart Score for Chest Pain Patients
STEMI patient?: Not applicable
Withdrawal Assessment of Alcohol
Withdrawal Assessment Completed?: Not applicable
Course
Orders/Labs/Results
Orders:
Orders
08/24/24 07:20
Electrocardiogram (*1) Urgent
Reason for Study: Chest Pain
EKG- Treatment ONCE
Interrogate Pacemaker- Treatment ONCE
08/24/24 07:34
CR Chest - 2 Views Urgent
Comment:
Reason For Exam: exertional dyspnea
08/24/24 07:55
Atypical Antibody Screen Urgent
BBK Wristband Number:
Type+Screen Urgent
Complete Blood Count/With Diff Urgent
Comprehensive Metabolic Panel Urgent
Magnesium Urgent
NT-proBNP Urgent
PTT Urgent
Prothrombin Time Urgent
Troponin I Urgent
08/24/24 08:54
Apixaban [Eliquis] 2.5 mg PO NOW STA
Furosemide [Lasix] 40 mg IV NOW STA
Metoprolol Xl [Toprol Xl] 50 mg PO NOW STA
08/24/24 Lunch
2000 calorie (17 carb) Diabetic
At Your Request: Full Participation
Fluid Restriction: 1440 mL/day (48 oz)
Diabetic Diet: Sodium, 2 Gram
08/24/24 10:[address] Non Medication Order As Directed
Physician Order: please TT me when med rec complete
Above order entered?: Yes
08/24/24 10:35
Admit/Transfer Patient As Directed
Co-Sign Provider:
Level of Care: Inpatient admission
Assign to:: Telemetry
Physician / Group: Autumn Fox
Diagnosis: acute heart failure
Reason for Telemetry: Pulmonary Edema
Date to Stop Telemetry: 08/27/24
Time to Stop Telemetry: 11:00
Reason for Hospitalization: acute heart failure
Expected length of stay greater than two midnights?: Yes
ELOS- Estimated Length of Stay in days: 3
I certify the patient meets the requirements for IP care: Yes
PRN Pain Medication Management As Directed
May give lesser potent ordered pain med per pt: Yes
preference::
Protocol:: Medication orders for pain may be administered in a
manner that supports deferring to patient preference
when the pt is:
- Requesting an ordered lesser potent pain medication.
Least to most potent pain medications are defined
as: acetaminophen < NSAID < tramadol < opioids
(morphine, oxycodone, hydromorphone).
- Requesting a lesser dose of the same medication IF
ORDERED.
- Requesting a less intrusive route of administration
if both routes are prescribed by the provider (PO <
IV).
08/24/24 10:38
Code Status As Directed
Resuscitation Status: Full Code
08/24/24 10:44
CARDIOLOGY CONSULT Routine
Consulting Provider: Agustin Roa
Was physician already notified: Yes
08/24/24 12:08
Aspirin Low Dose EC [Aspir Low (Enteric Coated)] 81 mg PO DAILY
Dextrose 50%-Water [Dextrose 50% Syringe] 12.5 grams IV [id number] PRN
Glucagon [GlucaGen] 1 mg IM PRN PRN
Insulin Aspart Corrective Low [Novolog Flexpen-Low Resistance] See Protocol SC AC
Repaglinide [Prandin] 1 mg PO MEALS
08/24/24 12:08
HF DIETARY CONSULT Routine
HF EDUCATOR CONSULT Routine
Comment:
Activity As Directed
Activity Level: As Tolerated
Bedside Glucose Monitoring As Directed
Frequency: AC&HS
Additional Instructions:: Change to q6h if pt on TPN, tube feeding or not eating
Intake/ Output As Directed
Frequency: Per unit guidelines
Patient Education As Directed
Type: CHF folder
Comment: give on admission. Document in Interdisciplinary Education record
Sleep Apnea Assessment by RN As Directed
Comment:
Physician Instructions:
Vital Signs As Directed
Frequency: Other
Additional Instructions:: Q12 or per unit guidelines if more frequent.
Weight As Directed
Frequency: Daily
Type of Scale: Standing Scale
Comment: Daily morning weight. If unable to stand, use balanced bed scale.
Weight As Directed
Frequency: Once
Type of Scale: Standing Scale
Comment: Upon Admission. If unable to stand, use balanced bed scale.
Pulse Ox/cont/shift [RESP] Routine
Quantity: 1
Special Instructions: Daily pulse oximetry at rest. If greater than 92% at rest also obtain pulse oximetry
while ambulating as tolerated.
08/24/24 16:00
Furosemide [Lasix] 40 mg IV BID AT 0800,1600
08/24/24 18:00
Rosuvastatin Calcium [Crestor] 10 mg PO QPM
08/24/24 20:00
Apixaban [Eliquis] 2.5 mg PO BID
Metoprolol Xl [Toprol Xl] 50 mg PO BID
08/25/24 06:00
Basic Metabolic Panel IN AM
Cardiovascular Evaluation IN AM
Complete Blood Count/No Diff IN AM
Glycohemoglobin (HgbA1c) IN AM
Magnesium IN AM
TSH Reflex To Free T4 IN AM
08/26/24 06:00
Basic Metabolic Panel IN AM
08/27/24 06:00
Basic Metabolic Panel IN AM
08/27/24 11:00
DC Protocol for Telemetry ONCE
Abnormal Lab Results
08/24/24
07:55
RBC 4.04 L 10^6/uL
(4.70-6.10)
MCV 96.8 H fL
(80.0-94.0)
MCH 32.9 H pg
(27.0-31.0)
Absolute Lymphs (auto) 0.7 L 10^3/uL
(1.2-3.4)
Absolute Monos (auto) 0.7 H 10^3/uL
(0.1-0.6)
Lymphocytes % 12.1 L %
(20.5-51.1)
Monocytes % 11.1 H %
(1.7-9.3)
Eosinophils % 6.2 H %
(0-6)
PT 18.3 H Sec
(11.4-14.6)
APTT 48.7 H Sec
(23.4-35.0)
Chloride 111 H mmol/L
(98-107)
BUN 26 H mg/dl
(9-20)
Creatinine 1.4 H mg/dL
(0.7-1.3)
Glucose 135 H mg/dl
(70-99)
08/24/24 07:55
08/24/24 07:55
Vital Signs
Initial and Last Documented VS:
Initial Vital Signs
Temp Pulse Resp BP Pulse Ox
97.8 F 85 16 131/99 98
08/24/24 07:13 08/24/24 07:13 08/24/24 07:13 08/24/24 07:13 08/24/24 07:13
Last Documented Vital Signs
Temp Pulse Resp BP Pulse Ox
97.6 F 86 18 133/83 98
08/24/24 12:39 08/24/24 12:39 08/24/24 12:39 08/24/24 12:39 08/24/24 12:39
MDM/Problems Addressed
Differential Diagnosis Includes:
The Differential Diagnosis includes, in no particular order and is not limited to:
- Anemia
- Electrolyte imbalance
- Cardiac arrhythmia
- Dehydration
- Acute infection (gastrointestinal)
- Heart failure exacerbation
- Medication side effects
- Thyroid dysfunction
- Postural hypotension
- Transient ischemic attack
MDM/Problems Addressed:
- Obtain blood work and CXR to evaluate potential infections, check electrolyte levels, and assess hemoglobin levels.
- Consider further cardiac evaluation due to the patients cardiac history, possibly in consultation with the patients production crew supervisor, Dr. Abreu.
- Monitor for potential infection related to diarrhea and investigate underlying electrolyte imbalances as a contributing factor.
- Will interrogate patients Medtronic pacemaker
Chronic conditions affecting care: Arrhythmia and Cancer
*Radiology
Radiology exam reviewed: preliminary read by ED provider (Cardiomegaly without evidence for pleural effusion)
*Pulse Oximetry
Patient hypoxic: no
Comment: 96
*EKG
Heart Rate: 83
Rate: normal
Rhythm: ventricular paced
*Guzzler Builder Interpretation
Rhythm: ventricular paced
*Critical Care Note
Total Time (30-74mins, 75-104mins- exclusive of procedures): Not Applicable
Data Reviewed
Review of Other/Old Records Reveals: Labs, Records and Progress Notes
Source: patient and records
Comment
Comment:
Patient did have a recent echocardiogram on July 30, 2024:
CONCLUSIONS
-Estimated left ventricular ejection fraction is approximately 30-35%. Global
hypokinesis.
-Enlarged right ventricle with reduced systolic function. ICD wire seen in
right ventricle.
-Severely dilated left atrium. Severely dilated right atrium.
-Moderate to severe tricuspid regurgitation. Estimated pulmonary artery
pressure of 35-40 mmHg.
-Dilated aortic root (SOV 4.3 cm).
-The IVC is dilated and does not collapse.
Compared to previous echo on 09/08/2023, there is minimal improvement in LVEF
(previously 25-30%).
Patient Management
Discussion with other providers: Hospitalist
Escalation/DeEscalation of care consider admission/obs:
08/24/24 - 08:59
The patients laboratory results indicate a non-negative troponin; however, levels remain within normal limits. BNP is elevated at 2,400. Imaging reveals new cardiomegaly. Given the patients worsening exertional dyspnea alongside these findings,
admission for diuresis is planned. Cardiology consultation is requested, and the hospitalist team has been informed and agrees to accept the patient for further management.
ED Attending Note
-
Portions of this chart may have been created with voice recognition software.� Occasional wrong word or��sound alike� substitutions may have occurred due to the inherent limitations of voice recognition software.
Discharge Plan
Departure
Patient Disposition: Admit
Date of Disposition: 08/24/24
Time of Disposition: 08:57
Presentation/result/management discussed w/ accepting MD/DO: Hospitalist
Discharge Problem:
Congestive heart failure (CHF), CKD (chronic kidney disease)
Interventions
Interventions:
*Risk Screen - Suicide Last Done: 08/24/24 12:41
*General Assessment Last Done: 08/24/24 07:13
*Neglect/Abuse Screening Last Done: 08/24/24 07:13
*ED- Fall Risk Assessment Last Done: 08/24/24 07:13
*ED COVID-19 Vaccine History Last Done: 08/24/24 12:41
*Nursing Disposition Last Done: 08/24/24 11:19
ED- Neurological Assessment Last Done: 08/24/24 07:13
ED- Cardiac Assessment Last Done: 08/24/24 07:13
ED Swallowing Screen Last Done: 08/24/24 07:13
Discharge Date and Time
Discharge Date/Time: 08/24/24 12:01
[2024-08-24 08:07] LABS: % Basophils 0.7 % (0-2); % Eosinophils 6.2 % (0-6); % Immature Granulocytes 0.5 % (0-0.5); % Lymphocytes 12.1 % (20.5-51.1); % Monocytes 11.1 % (1.7-9.3); % Neutrophils 69.4 % (42.2-75.2); Absolute Eosinophils 0.4 10^3/uL (0-0.7); Absolute Lymphocytes 0.7 10^3/uL (1.2-3.4); Absolute Monocytes 0.7 10^3/uL (0.1-0.6); Absolute Neutrophils 4.1 10^3/uL (1.4-6.5); Hematocrit 39.1 % (39.0-52.0); Hemoglobin 13.3 g/dL (13.0-18.0); Mean Corpuscular Hgb 32.9 pg (27.0-31.0); Mean Corpuscular Volume 96.8 fL (80.0-94.0); Mean Platelet Volume 10.3 fL (7.4-10.4); Nucleated Red Blood Cells % 0 % (-); Platelet Count 164 10^3/uL (130-400); Red Blood Cell Count 4.04 10^6/uL (4.70-6.10); Red Cell Dist. Width 13.1 % (11.5-14.5); White Blood Cell Count 5.9 10^3/uL (4.8-10.8)
[2024-08-24 08:25] LABS: ALT (SGPT) 24 U/L (0-50); AST (SGOT) 45 U/L (17-59); Alkaline Phosphatase 58 U/L (38-126); Blood Urea Nitrogen 26 mg/dl (9-20); Calcium 9.2 mg/dl (8.4-10.2); Carbon Dioxide 24 mmol/L (22-30); Chloride 111 mmol/L (98-107); Estimated Creatinine Clearance 43 ml/min; Glucose 135 mg/dl (70-99); Magnesium 2.2 mg/dl (1.6-2.3); Potassium 4.4 mmol/L (3.5-5.1); Sodium 142 mmol/L (135-145); Total Bilirubin 1.1 mg/dl (0.2-1.3); Total Protein 6.7 g/dl (6.3-8.2); eGFR 49.87
[2024-08-24 08:37] LABS: NT-proBNP 2410 pg/ml; Troponin I 0.029 ng/ml
[2024-08-24 08:51] LABS: INR 1.49; PT 18.3 Sec (11.4-14.6)
[2024-08-24 08:52] LABS: APTT 48.7 Sec (23.4-35.0)
[2024-08-24] MEDS: LASIX 40 MG IV ×2 (09:18→16:18)
[2024-08-24] MEDS: TOPROL XL 50 MG PO ×2 (09:18→20:06)
[2024-08-24] MEDS: ELIQUIS 2.5 MG PO ×2 (09:18→20:06)
--- NOTE | 2024-08-24 10:00 | HPS.HSE ---
Family Physician
-
Family Physician: Jono Green
Chief Complaint
-
shortness of breath
History of Present Illness
Mr. Oniel Dinh is a 84 yo man with hx ischemic cardiomyopathy with HFrEF s/p AICD, paroxysmal atrial fibrillation, s/p PPM, PE on Eliquis, CKD II, essential HTN, DM, CVA 2021, colon and renal CA (patient reports now in remission) presents with
shortness of breath, dizziness and feeling lightheaded.
Patient states that he usually likes to walk but recently cannot walk more than a couple of blocks without feeling short of breath. This morning he felt dizzy when getting out of bed and encouraged him to come to ER. He denies chest pain.
No recent fevers/chills/cough/congestion. He recently had a couple of days of water diarrhea and cramping that is now resolving.
Medical History
Past Medical History
Past Medical History: Reports Other (prior CVA 2001, multivessel coronary artery disease, severe ischemic cardiomyopathy with EF of 30 to 35% status post ICD, ventricular fibrillation, paroxysmal atrial fibrillation, mild pulmonary hypertension,
pulmonary embolism on Eliquis, CKD stage II, hypertension, diabetes, colon cancer, left eren)
Past Surgical History: Reports None
Social History
Tobacco: Non-smoker
Alcohol: None
Drug: None
Family History
Family History: Not pertinent
Allergies / Home Medications
Allergies reflects when Allergies were last updated in [facility]io control.
Home Medications with original date entered in Cardio control
Allergy/Medication List:
Allergies
Allergy/AdvReac Type Severity Reaction Status Date / Time
metformin Allergy Hives-xr Verified 08/24/24 07:12
only
red dye Allergy throat Verified 08/24/24 07:12
closed up
Sulfa (Sulfonamide Allergy throat Verified 08/24/24 07:12
Antibiotics) tightens up
Home Medications
linagliptin 5 mg tablet (Tradjenta) 5 mg PO DAILY Diabetes 01/22/19
multivitamin with folic acid 400 mcg tablet (Tab-A-Michele) 1 tab PO DAILY Supplement 01/22/19
aspirin 81 mg tablet,delayed release 81 mg PO QPM Blood clot prevention/tx 11/05/19
ferrous sulfate 325 mg (65 mg iron) tablet (FeroSul) 325 mg PO Q48H Supplement 11/05/19
apixaban 2.5 mg tablet (Eliquis) 2.5 mg PO BID 09/07/23
ergocalciferol (vitamin D2) 1,250 mcg (50,000 unit) capsule (Vitamin D2) 1,250 mcg PO Q15D 09/07/23
insulin glargine 100 unit/mL (3 mL) subcutaneous pen (Lantus Solostar U-100 Insulin) 10 unit SC HS 09/07/23
metoprolol succinate 50 mg tablet,extended release 24 hr 50 mg PO BID 09/07/23
repaglinide 1 mg tablet 1 mg PO DAILY 09/07/23
repaglinide 1 mg tablet 2 mg PO NOON 09/07/23
repaglinide 2 mg tablet 8 mg PO QPM 09/07/23
rosuvastatin 20 mg tablet 10 mg PO QPM 09/07/23
Review of Systems
-
History Source: Patient
A 12 point ROS was completed and negative except as noted: Yes
Physical Exam
Vital Signs
Vital Signs
Temp Pulse Resp BP Pulse Ox
97.8 F 78 21 125/87 96
08/24/24 07:13 08/24/24 09:30 08/24/24 09:30 08/24/24 09:18 08/24/24 09:30
Physical Exam
General: No Apparent Distress
HEENT: PERRLA
Respiratory: Clear; No Wheezes
Cardiac: S1/S2, Regular Rhythm and JVD
GI: Soft and Non Tender
Musculoskeletal: No Cyanosis
Skin: Warm and Dry; No Rash
Neuro: AO x 3
Psych: Calm
Laboratory Results
-
08/24/24 07:55
08/24/24 07:55
Laboratory Results
PT 18.3 Sec (11.4-14.6) H 08/24/24 07:55
INR 1.49 08/24/24 07:55
APTT 48.7 Sec (23.4-35.0) H 08/24/24 07:55
Total Bilirubin 1.1 mg/dl (0.2-1.3) 08/24/24 07:55
AST 45 U/L (17-59) 08/24/24 07:55
ALT 24 U/L (0-50) 08/24/24 07:55
Alkaline Phosphatase 58 U/L (38-126) 08/24/24 07:55
Troponin I 0.029 ng/ml 08/24/24 07:55
Data Reviewed
-
Diagnostic Radiology: Report Reviewed by me
Lab Data: Labs Reviewed by me
Impression/Plan
-
Mr. Oniel Dinh is a 84 yo man with hx ischemic cardiomyopathy with HFrEF s/p AICD, paroxysmal atrial fibrillation, s/p PPM, PE on Eliquis, CKD II, essential HTN, DM, CVA 2021 presents with shortness of breath, dizziness and feeling lightheaded.
Triage VS: T 97.8, P 85, RR 16, BP 131/99, SpO2 98%
LABS: WBC 5.9, Hg 13.3, PLT 164, Na 142, K+ 4.4, CO2 24, BUN 26, Cr 1.4, Glucose 135, Mag 2.2, liver enzymes WNL, Trop 0.029, BNP 2410
CXR
IMPRESSION:
1. Chronic pulmonary arterial hypertension.
2. Mild cardiomegaly.
3. Previous CABG surgery.
4. Mild bilateral lung hyperinflation.
5. Left-sided biventricular AICD in place.
6. Right IJ chemotherapy Mediport in place.
7. Severe osteoarthritis of the left glenohumeral joint.
TTE 07/30/24
CONCLUSIONS
-Estimated left ventricular ejection fraction is approximately 30-35%. Global
hypokinesis.
-Enlarged right ventricle with reduced systolic function. ICD wire seen in
right ventricle.
-Severely dilated left atrium. Severely dilated right atrium.
-Moderate to severe tricuspid regurgitation. Estimated pulmonary artery
pressure of 35-40 mmHg.
-Dilated aortic root (SOV 4.3 cm).
-The IVC is dilated and does not collapse.
Heart Failure Reduced EF Acute Exacerbation
-admit to telemetry
-Lasix 40mg IV BID
-recent echo results above
-patient reports no hx prior Lasix use
-daily weights, strict I/O
-Cardiology consult
-F/U TSH tomorrow AM
CKD II
-creatinine at baseline, monitor with diuresis
Paroxysmal Atrial Fibrillation
-SEARCH OPTIMIZATION ANALYST Metoprolol XL BID, SEARCH OPTIMIZATION ANALYST Eliquis - will need to confirm dose with Cardiology
Hx PE
-SEARCH OPTIMIZATION ANALYST Eliquis
Essential HTN
-SEARCH OPTIMIZATION ANALYST Metoprolol
DM
-patient is on Repaglinide, Tradjenta and Lantus; he has continuous monitor
-will order lower dose Lantus here. Patient states he does not take if BGL < 160
-lower dose Repaglinide - 1mg with meals
-hold Tradjenta for now
-Farxiga recommended to patient in past
-F/U A1c
-ISS low
Hx CVA 2021
s/p AICD
s/p PPM
DVT PPx Eliquis
FULL CODE
76 MINUTES spent on patient care
--- NOTE | 2024-08-24 11:27 | CM ---
Met with patient in the ED at bedside; initial assessment completed
IMM benefit explained; form signed @ 1120
Pharmacy verified: [facility] @ [address]
Patient lives w/ ; multilevel home; 1 step to enter; 13 steps to 2nd floor; powder room 1st floor; 2nd floor bath has stall shower with grab bar and seat
PLOF: reported he is independent with ambulation, stairs, and ADLs; drives; has a stair lift but does not need it
DME: wear a Continuous Glucose Monitor
No SNF or Home Health utilization history
Son will transport home
Plan: anticipate discharge to home when medically stable; Manager Meeting will monitor for discharge needs
[2024-08-24 12:35] LABS: Glucose - Point of Care 106 mg/dl (70-99)
[2024-08-24] MEDS: NOVOLOG FLEXPEN-LOW RESISTANCE SC (12:52)
--- NOTE | 2024-08-24 13:08 | CON.CAR ---
Consultation
Consultation Request
Date/Time Consultation Requested: 08/24/24 @ 10:44 AM
Date/Time Consultation Performed: 08/24/24 @ 13:00
Requesting Provider: Autumn Fox MD
Performing Provider: Agustin Roa MD
Reason for Consultation: concern for CHF exacerbation
Medical History
-
Chief Complaint: lightheadedness, SOB
History of Present Illness:
84-year-old man with CAD (last PCI to LAD/OM2 in 2021), HFrEF (EF 25-30%), permanent atrial fibrillation, CKD, and diabetes who presents with lightheadedness/dizziness on the background of several weeks of shortness of breath. He reports that for
the past couple of weeks he has been more dyspneic than usual. He usually takes a walk around the block up to 5 times a day and lately has only been able to walk about 2 houses before he has to turn around due to fatigue and dyspnea. This morning
he was walking back from the bathroom when he felt lightheaded and called his who recommended they come to the ER. He thinks he also had some palpitations last night. He denies chest pain, orthopnea, and lower extremity edema. He does not
weigh himself at home.
Past Medical History
Past Medical History: Other (As above)
Social History
Personal:
Family History
Family History: Reviewed & Not Pertinent
Allergies / Home Medications
Allergy/AdvReac Type Severity Reaction Status Date / Time
metformin Allergy Hives-xr Verified 08/24/24 07:12
only
red dye Allergy throat Verified 08/24/24 07:12
closed up
Sulfa (Sulfonamide Allergy throat Verified 08/24/24 07:12
Antibiotics) tightens up
�Medication �Instructions �Recorded �Confirmed �Type
linagliptin 5 mg tablet (Tradjenta) 5 mg PO DAILY Diabetes 01/22/19 08/24/24 History
multivitamin with folic acid 400 1 tab PO DAILY Supplement 01/22/19 08/24/24 History
mcg tablet (Tab-A-Michele)
aspirin 81 mg tablet,delayed 81 mg PO DAILY Blood clot 11/05/19 08/24/24 History
release prevention/tx
ferrous sulfate 325 mg (65 mg 325 mg PO Q48H Supplement 11/05/19 08/24/24 History
iron) tablet (FeroSul)
apixaban 2.5 mg tablet (Eliquis) 2.5 mg PO BID 09/07/23 08/24/24 History
insulin glargine 100 unit/mL (3 10 unit SC HS 09/07/23 08/24/24 History
mL) subcutaneous pen (Lantus
Solostar U-100 Insulin)
metoprolol succinate 50 mg 50 mg PO BID 09/07/23 08/24/24 History
tablet,extended release 24 hr
repaglinide 1 mg tablet 1 mg PO DAILY 09/07/23 08/24/24 History
repaglinide 1 mg tablet 2 mg PO NOON 09/07/23 08/24/24 History
repaglinide 2 mg tablet 8 mg PO QPM 09/07/23 08/24/24 History
rosuvastatin 20 mg tablet 10 mg PO QPM 09/07/23 08/24/24 History
ergocalciferol (vitamin D2) 1,250 1,250 mcg PO Q15D 08/24/24 08/24/24 History
mcg (50,000 unit) capsule
Review of Systems
-
All other systems: Negative unless noted
Physical Exam
Vital Signs
Temp Pulse Resp BP Pulse Ox
97.6 F 86 18 133/83 98
08/24/24 12:39 08/24/24 12:39 08/24/24 12:39 08/24/24 12:39 08/24/24 12:39
Lab Results
08/24/24 07:55
08/24/24 07:55
Troponin I 0.029 ng/ml 08/24/24 07:55
Zsc-P-Tnlpibzsihl Pept 2410 pg/ml 08/24/24 07:55
Physical Exam
General: Well Developed, Well Nourished and No Apparent Distress
Respiratory: Clear and Non Labored Respirations
Cardiac: S1/S2 and Regular Rhythm; Negative Murmur or Peripheral Edema
Neuro: AO x 3
Impression / Plan
-
84-year-old man with CAD (last PCI to LAD/OM2 in 2021), HFrEF (EF 30-35%), permanent atrial fibrillation, CKD, and diabetes who presents with lightheadedness/dizziness on the background of several weeks of shortness of breath. Cardiology is
consulted due to concern for CHF exacerbation.
Automotive Heavy Mechanic: Dr. Abreu
Shortness of breath
-I am not sure that this is a CHF exacerbation. His weight is lower than when he was last seen in the office in June. He examines euvolemic. CXR with no evidence of pulmonary edema. BNP is elevated but confounded by permanent atrial
fibrillation. Differential diagnosis also includes recurrent obstructive CAD. Last PCI 2021. Lexiscan 09/2023 with apical infarct.
-Agree with trialing Lasix 40 mg IV twice daily and monitoring
-If no improvement with Lasix, we will plan for stress test on Monday.
HFrEF
-Possible exacerbation as above. Will try Lasix (none as outpatient).
-Last TTE 07/30/2024: LVEF 30-35%, mod/severe TR, PASP 35-40 mmHg
-GDMT:
--BB: continue home metoprolol
--RYLEE/ARB/ARNI: syncope with Entresto
--MRA: none due to CKD
--SGLT2i: patient declined as outpatient
- ICD in place
Coronary artery disease
-No chest discomfort but his shortness of breath could be an anginal equivalent.
-[facility] October 2021: 90% proximal LAD stenosis, 50-60% mid LAD stenosis, 90% proximal OM1 lesion; PCI to prox LAD and OM1/2
-Possible stress test Monday pending symptoms
-Continue aspirin and rosuvastatin
Permanent atrial fibrillation
-Rate controlled. Continue metoprolol.
-Continue Eliquis 2.5 mg twice daily (age, CKD)
Data Reviewed
-
EKG: Tracing Personally Visualized and interpreted (Atrial fibrillation, ventricular pacing, PVCs)
Radiology: Image Personally Visualized and interpreted (Small left pleural effusion, no significant pulmonary edema)
Medical Tests (Nuc Med, Echo etc): Report Reviewed by me (TTE 07/30/2024: LVEF 30-35%, moderate/severe TR, PASP 35-40 mmHg)
Labs: Labs Reviewed by me
Old Records: Reviewed
[2024-08-24] MEDS: ASPIR LOW (ENTERIC COATED) 81 MG PO (13:09)
[2024-08-24] MEDS: PRANDIN 1 MG PO ×2 (13:09→17:09)
--- NOTE | 2024-08-24 14:18 | PTCARENOTE ---
Received pt from ED into 407-1. Pt ambulatory to bed with standby assistance. V Paced with PVCs. AAOx3. 98% RA. Pt denies pain. Oriented to room, call olson within reach. Educated pt to call for assistance. Pt verbalizes understanding.
[2024-08-24 16:18] LABS: Glucose - Point of Care 210 mg/dl (70-99)
[2024-08-24] MEDS: NOVOLOG FLEXPEN-LOW RESISTANCE 2 UNITS SC (16:27)
[2024-08-24] MEDS: CRESTOR 10 MG PO (17:09)
[2024-08-24 21:18] LABS: Glucose - Point of Care 174 mg/dl (70-99)
[2024-08-25 03:06] VITALS: BP 129/74
[2024-08-25 04:43] LABS: Hematocrit 40.9 % (39.0-52.0); Hemoglobin 14.1 g/dL (13.0-18.0); Mean Corp Hgb Conc. 34.5 g/dL (33.0-37.0); Mean Corpuscular Volume 95.8 fL (80.0-94.0); Mean Platelet Volume 10.3 fL (7.4-10.4); Platelet Count 201 10^3/uL (130-400); Red Blood Cell Count 4.27 10^6/uL (4.70-6.10); Red Cell Dist. Width 12.8 % (11.5-14.5); White Blood Cell Count 6.6 10^3/uL (4.8-10.8)
[2024-08-25 05:19] LABS: Total Cholesterol 144 mg/dl (50-199)
[2024-08-25 05:26] LABS: TSH Reflex To Free T4 2.61 uIU/ml (0.47-4.68)
[2024-08-25 06:00] VITALS: BMI 22.5
[2024-08-25 06:04] LABS: Blood Urea Nitrogen 35 mg/dl (9-20); Calcium 9.8 mg/dl (8.4-10.2); Carbon Dioxide 20 mmol/L (22-30); Chloride 107 mmol/L (98-107); Estimated Creatinine Clearance 37 ml/min; Glucose 140 mg/dl (70-99); HDL Cholesterol 45 mg/dl; LDL Cholesterol, Calculated 74 mg/dl; Magnesium 2.2 mg/dl (1.6-2.3); Potassium 4.6 mmol/L (3.5-5.1); Sodium 140 mmol/L (135-145); Triglyceride 129 mg/dl (10-149); Very Low Density Lipoprotein 25 mg/dl (0-30); eGFR 42.49
[2024-08-25 07:17] LABS: Glucose - Point of Care 167 mg/dl (70-99)
[2024-08-25] MEDS: PRANDIN 1 MG PO ×2 (07:28→13:30)
[2024-08-25] MEDS: NOVOLOG FLEXPEN-LOW RESISTANCE 1 UNITS SC (07:28)
[2024-08-25] MEDS: ELIQUIS 2.5 MG PO (08:24)
[2024-08-25] MEDS: ASPIR LOW (ENTERIC COATED) 81 MG PO (08:24)
[2024-08-25] MEDS: TOPROL XL 50 MG PO (08:24)
[2024-08-25 08:33] VITALS: BP 122/67
[2024-08-25 10:11] LABS: Glycohemoglobin (HgbA1c) 7.3 % (4.0-5.6)
--- NOTE | 2024-08-25 10:27 | W.PN.CD ---
Today's Communication / Plan
-
Okay for discharge
Please discharge with p.o. Lasix 40 mg as needed for weight gain > 3 pounds overnight or > 5 pounds in 1 week
I will arrange follow-up with our office in 4 weeks.
Impression / Plan
-
84-year-old man with CAD (last PCI to LAD/OM2 in 2021), HFrEF (EF 30-35%), permanent atrial fibrillation, CKD, and diabetes who presents with lightheadedness/dizziness on the background of several weeks of shortness of breath. Cardiology is
consulted due to concern for CHF exacerbation.
Camera Person: Dr. Abreu
HFrEF, acute on chronic
-He feels vastly improved after IV Lasix
-Last TTE 07/30/2024: LVEF 30-35%, mod/severe TR, PASP 35-40 mmHg
-GDMT:
--BB: continue home metoprolol
--RYLEE/ARB/ARNI: syncope with Entresto
--MRA: none due to CKD
--SGLT2i: patient declined as outpatient
-ICD in place
-He was not on Lasix prior to admission. We will add p.o. Lasix 40 mg as needed for weight gain.
Coronary artery disease
-[facility] October 2021: 90% proximal LAD stenosis, 50-60% mid LAD stenosis, 90% proximal OM1 lesion; PCI to prox LAD and OM1/2
-Continue aspirin and rosuvastatin
Permanent atrial fibrillation
-Rate controlled. Continue metoprolol.
-Continue Eliquis 2.5 mg twice daily (age, CKD)
Subjective: He feels much better in terms of energy levels and dyspnea.
Physical Exam
Vital Signs/Labs
Vital Signs
Temp Pulse Resp BP Pulse Ox
98.1 F 68 18 122/67 96
08/25/24 08:33 08/25/24 08:33 08/25/24 08:33 08/25/24 08:33 08/25/24 08:33
08/24/24 08/25/24 08/26/24
06:59 06:59 06:59
Actual Weight 161 lb 3 oz
08/25/24 04:15
08/25/24 04:15
PT 18.3 Sec (11.4-14.6) H 08/24/24 07:55
INR 1.49 08/24/24 07:55
APTT 48.7 Sec (23.4-35.0) H 08/24/24 07:55
Magnesium 2.2 mg/dl (1.6-2.3) 08/25/24 04:15
Triglycerides 129 mg/dl (10-149) 08/25/24 04:15
LDL Cholesterol, Calc 74 mg/dl 08/25/24 04:15
VLDL Cholesterol, Calc 25 mg/dl (0-30) 08/25/24 04:15
HDL Cholesterol 45 mg/dl 08/25/24 04:15
08/24/24
07:55
Uvi-J-Uadxswtiyem Pept 2410
LAB Results
08/24/24
07:55
Troponin I 0.029
Physical Exam
Constitutional: No acute distress and Comfortable
Cardiovascular: Rhythm & rate is regular, Pedal edema is absent, S1S2 is normal and Murmur/rub/gallop absent
Respiratory: Respiratory effort normal and Lungs clear to auscul.
Neuro/Psych: AO x 3
Data Reviewed
-
Date of Service: August 25, 2024
Medical Decision Making: Reviewed Test Results, Independent Historian Assessment, Test Interpretation and Review of Case with other Provider
EKG: Tracing Personally Visualized and interpreted
Echo: Report Reviewed by me
X-Ray/CT/US/MRI/NUC/PET: Report Reviewed by me
Labs: Labs Reviewed by me
[2024-08-25 11:27] VITALS: BP 124/73
[2024-08-25 11:45] LABS: Glucose - Point of Care 220 mg/dl (70-99)
--- NOTE | 2024-08-25 11:47 | W.PN.HOSP.TC ---
Today's Communication/Plan
-
stable for DC today
Assessment / Plan
Assessment / Plan
Mr. Oniel Dinh is a 84 yo man with hx ischemic cardiomyopathy with HFrEF s/p AICD, paroxysmal atrial fibrillation, s/p PPM, PE on Eliquis, CKD II, essential HTN, DM, CVA 2021 presents with shortness of breath, dizziness and feeling lightheaded.
CXR
IMPRESSION:
1. Chronic pulmonary arterial hypertension.
2. Mild cardiomegaly.
3. Previous CABG surgery.
4. Mild bilateral lung hyperinflation.
5. Left-sided biventricular AICD in place.
6. Right IJ chemotherapy Mediport in place.
7. Severe osteoarthritis of the left glenohumeral joint.
TTE 07/30/24
CONCLUSIONS
-Estimated left ventricular ejection fraction is approximately 30-35%. Global
hypokinesis.
-Enlarged right ventricle with reduced systolic function. ICD wire seen in
right ventricle.
-Severely dilated left atrium. Severely dilated right atrium.
-Moderate to severe tricuspid regurgitation. Estimated pulmonary artery
pressure of 35-40 mmHg.
-Dilated aortic root (SOV 4.3 cm).
-The IVC is dilated and does not collapse.
Heart Failure Reduced EF Acute Exacerbation
-admit to telemetry
- s/p IV Lasix with significant improvement - DC on Lasix 40mg as needed
-recent echo results above
-patient reports no hx prior Lasix use
-daily weights, strict I/O
-Cardiology consult appreciated
CKD II
-creatinine at baseline, monitor with diuresis
Paroxysmal Atrial Fibrillation
-GELATIN PLANT SUPERVISOR Metoprolol XL BID, GELATIN PLANT SUPERVISOR Eliquis
Hx PE
-GELATIN PLANT SUPERVISOR Eliquis
Essential HTN
-GELATIN PLANT SUPERVISOR Metoprolol
DM
-patient is on Repaglinide, Tradjenta and Lantus; he has continuous monitor
-resume home regimen on DC
Hx CVA 2021
s/p AICD
s/p PPM
DVT PPx Eliquis
FULL CODE
Anticipated Discharge: Today
Subjective/Interval History
-
Date of Service: August 25, 2024
he is feeling well and wants to go home
no chest pain
feels steady on feet, denies shortness of breath
Objective Data
-
Labs:
Laboratory Results
08/25/24
04:15
WBC 6.6
Hgb 14.1
Hct 40.9
Plt Count 201 D
Sodium 140
Potassium 4.6
Chloride 107
Carbon Dioxide 20 L
BUN 35 H
Creatinine 1.6 H
Glucose 140 H
Calcium 9.8
Vital Signs:
Vital Signs
Temp Pulse Resp BP Pulse Ox
98 F 85 18 124/73 100
08/25/24 11:27 08/25/24 11:27 08/25/24 11:27 08/25/24 11:27 08/25/24 11:27
I&O
08/24/24 08/25/24 08/26/24
06:59 06:59 06:59
Intake Total 720 / 720 480 / 480
Balance 720 / 720 480 / 480
Review of Systems
-
History Source: Patient
All other systems: Reviewed and negative
Physical Exam
-
General: Well Developed
HEENT: Normocephalic
Respiratory: Clear to Auscultation
Cardiac: Regular Rhythm and S1/S2; Negative JVD
GI: Soft, Nontender and Nondistended
Musculoskeletal: Other (Right wrist access site inspected and intact)
Skin: IV Access / Catheter Site
Neuro: AO x 3
Psych: Calm
Data Reviewed
-
Diagnostic Radiology: Report Reviewed by me
Labs: Labs Reviewed by me
--- NOTE | 2024-08-25 11:58 | W.DS.TRANS ---
DC Summary - Grain Unloader Machine
-
Discharge Instructions:
Sleep Apnea Risk Intermediate
Discharge Diagnosis/Procedures heart failure exacerbation, reduced ejection
fraction
Diet 2 Gram Sodium,Restrict fluids to 48 oz
Activity As tolerated
Driving Restrictions As prior to admission
Bathing Restrictions None
Blood Work BMP (to monitor kidney function on lasix) in one
week
Specialty Instructions Weigh Daily
Instructions: *CBC Heart Failure Instructions
Stand-Alone Forms:
Changes to Home Medications: Yes
Discharge Medications:
DC Medications w/original date entered in [employer]
linagliptin 5 mg tablet (Tradjenta) 5 mg PO DAILY Diabetes 01/22/19
multivitamin with folic acid 400 mcg tablet (Tab-A-Michele) 1 tab PO DAILY Supplement 01/22/19
aspirin 81 mg tablet,delayed release 81 mg PO DAILY Blood clot prevention/tx 11/05/19
ferrous sulfate 325 mg (65 mg iron) tablet (FeroSul) 325 mg PO Q48H Supplement 11/05/19
apixaban 2.5 mg tablet (Eliquis) 2.5 mg PO BID Blood Clot Prevention/Tx 09/07/23
insulin glargine 100 unit/mL (3 mL) subcutaneous pen (Lantus Solostar U-100 Insulin) 10 unit SC HS Diabetes 09/07/23
metoprolol succinate 50 mg tablet,extended release 24 hr 50 mg PO BID Blood Pressure 09/07/23
rosuvastatin 20 mg tablet 10 mg PO QPM 09/07/23
ergocalciferol (vitamin D2) 1,250 mcg (50,000 unit) capsule 1,250 mcg PO Q15D Supplement 08/24/24
furosemide 40 mg tablet (Lasix) 40 mg PO DAILY PRN weight gain > 3 lbs overnight or > 5 1lbs 1 week #30 tabs 08/25/24
repaglinide 2 mg tablet 2 mg PO AC Diabetes #0 tabs 08/25/24
Home Medication Changes
Addition of Lasix as needed
Pending Results: No
--- NOTE | 2024-08-25 12:17 | CM ---
MD entered order for discharge .
Spoke with pt he said he was ready for discharge. His son Meli Roblero will drie him home at 3 pm today .
Offered VN he declined need.
Pt informed he was discharged.
IMM reviewed with pt he agrres with dc .
PLAn Home no needs
[2024-08-25] MEDS: LASIX IV (13:23)
[2024-08-25] MEDS: NOVOLOG FLEXPEN-LOW RESISTANCE 2 UNITS SC (13:30)
[2024-08-25 15:31] VITALS: BP 147/80
--- NOTE | 2024-08-25 16:14 | W.DCSUMMARY ---
Discharge Summary
Discharge Data
Date of Admission: 08/24/24
Date of Discharge: 08/25/24
-
Pending Results: No
Hospital Course
Discharging Physician : Dr. Autunm Fox
Disposition : Home
Primary care physician : Dr. Jono Green
Principal Discharge diagnosis : Heart Failure Reduced EF, Acute Exacerbation
Hospital Course :
Mr. Oniel Dinh is a 84 yo man with hx ischemic cardiomyopathy with HFrEF s/p AICD, paroxysmal atrial fibrillation, s/p PPM, PE on Eliquis, CKD II, essential HTN, DM, CVA 2021 presents with shortness of breath, dizziness and feeling lightheaded.
He was found to be fluid overloaded on exam. Triage vitals stable. Labs without leukocytosis and creatinine at baseline, Troponin 0.029, BNP 2410. CXR with mild cardiomegaly.
He was started on IV lasix 40mg IV BID. Seen by Cardiology. His symptoms improved significantly overnight, creatinine within his normal limits. Per discussion with Cardiology, he is discharged on Lasix 40mg to take daily as needed for weight
gain. A BMP is written for him for one week. He will follow up closely with his Drilling Machine Operator.
Time spent on discharge was 35 minutes.
Important imaging findings :
CXR
IMPRESSION:
1. Chronic pulmonary arterial hypertension.
2. Mild cardiomegaly.
3. Previous CABG surgery.
4. Mild bilateral lung hyperinflation.
5. Left-sided biventricular AICD in place.
6. Right IJ chemotherapy Mediport in place.
7. Severe osteoarthritis of the left glenohumeral joint.
Procedure findings :
Discharge Plan
-
Patient Disposition: Home (Routine Discharge)
Discharge Diagnosis/Procedures: heart failure exacerbation, reduced ejection fraction
Diet: 2 Gram Sodium and Restrict fluids to 48 oz
Activity: As tolerated
Driving Restrictions: As prior to admission
Bathing Restrictions: None
Blood Work: BMP (to monitor kidney function on lasix) in one week
Specialty Instructions: Weigh Daily- Call MD for wt gain/loss 3 lbs overnight/5 lbs in 1 week
Instructions: *CBC Heart Failure Instructions
Referrals:
Jono Green DO [Family Provider, Family Practice] - in less than 1 week
Robson Abreu MD [Active, Cardiology] - in three to four weeks
Additional Discharge Medication Instructions: You are newly prescribed Lasix to take for weight gain > 3 pounds overnight or > 5 pounds in 1 week.
Take same Prandin dosing that you were taking prior to this hospitalization.
Prescriptions:
New
furosemide [Lasix] 40 mg tablet
40 mg PO DAILY PRN (Reason: weight gain > 3 lbs overnight or > 5 1lbs 1 week) Qty: 30 0RF
Continued
Tradjenta 5 MG tablet
5 mg PO DAILY
multivitamin with folic acid [Tab-A-Michele] 1 TABLET tablet
1 tab PO DAILY
aspirin 81 MG tablet,delayed release (DR/EC)
81 mg PO DAILY
ferrous sulfate [FeroSul] 325 MG tablet
325 mg PO Q48H
metoprolol succinate 50 mg tablet extended release 24 hr
50 mg PO BID
insulin glargine [Lantus Solostar U-100 Insulin] 100 unit/mL (3 mL) insulin pen
10 unit SC HS
Eliquis 2.5 mg tablet
2.5 mg PO BID
rosuvastatin 20 mg tablet
10 mg PO QPM
ergocalciferol (vitamin D2) 1,250 mcg (50,000 unit) Capsule
1,250 mcg PO Q15D
Changed
repaglinide 2 mg tablet
2 mg PO AC Qty: 0 0RF
Rx Instructions:
with dinner
Discontinued
repaglinide 1 mg tablet
1 mg PO DAILY
Rx Instructions:
with breakfast
repaglinide 1 mg tablet
2 mg PO NOON
Rx Instructions:
with lunch
Discharge Orders:
Discharge Patient (As Directed); Ordered 08/25/24
Ordered By: Autumn Fox
Discharge Date and Time
Discharge Date/Time: 08/25/24 15:44
Print Language: CROATIAN
== END 2024-08-25 15:44 | disposition home or self-care (01) | DRG 291 ==
LOC: 4 EAST ACU 10:56
PROVIDERS: Physician Assistant Medical; ADMITTING PHYSICIAN Student in an Organized Health Care Education/Training Program; CONSULT PHYSICIAN Student in an Organized Health Care Education/Training Program; EMERGENCY PHYSICIAN Emergency Medicine; FAMILY PHYSICIAN Family Medicine
DX: I13.0 Hypertensive heart and chronic kidney disease with heart failure and stage 1 through stage 4 chronic kidney disease, or unspecified chronic kidney disease (principal); I50.23 Acute on chronic systolic (congestive) heart failure; N18.2 Chronic kidney disease, stage 2 (mild); E11.22 Type 2 diabetes mellitus with diabetic chronic kidney disease; I27.21 Secondary pulmonary arterial hypertension; Z95.1 Presence of aortocoronary bypass graft; Z95.810 Presence of automatic (implantable) cardiac defibrillator; M19.012 Primary osteoarthritis, left shoulder; Z79.84 Long term (current) use of oral hypoglycemic drugs; Z79.4 Long term (current) use of insulin; I48.0 Paroxysmal atrial fibrillation; Z88.8 Allergy status to other drugs, medicaments and biological substances; Z88.2 Allergy status to sulfonamides; Z79.82 Long term (current) use of aspirin; Z79.01 Long term (current) use of anticoagulants; Z85.038 Personal history of other malignant neoplasm of large intestine; K21.9 Gastro-esophageal reflux disease without esophagitis; Z85.528 Personal history of other malignant neoplasm of kidney; Z86.711 Personal history of pulmonary embolism; Z86.73 Personal history of transient ischemic attack (TIA), and cerebral infarction without residual deficits; Z91.041 Radiographic dye allergy status; I07.1 Rheumatic tricuspid insufficiency; I25.10 Atherosclerotic heart disease of native coronary artery without angina pectoris; I25.5 Ischemic cardiomyopathy; I42.8 Other cardiomyopathies
CPT/HCPCS: 71046; 80048; 80053; 80061; 82962; 83036; 83735; 83880; 84443; 84484; 85025; 85027; 85610; 85730; 86850; 86900; 86901; 93005; 93289; 96374; 99285